=== PATIENT | male | born 1945 | race Caucasian/White ===

== ENCOUNTER 2017-04-13 13:02 | Inpatient (IN) ==
--- OUTSIDE RECORDS SUMMARY | 2017-04-13 13:43 | External Medical Summary | Clinical Summary ---
:1945 Author Organization [facility] Address [address] [place] [address] Phone Care Team Providers Name Role Phone Unavailable Primary Care Provider Unavailable Source Comments Some departments are not documenting in the electronic medical record. If you do not see the information that you expected, contact Release of Information in the Health Information Management department at [phone] for further assistance in locating additional records.[facility] Allergies Active Allergy Reactions Severity Noted Date Comments Codeine 02/07/2007 Allergy recorded in SMS: Codeine~Reactions: NAUSEA/VOMIT Hydrocodone-Acetaminophen 02/07/2007 Allergy recorded in SMS: LORTAB~Reactions: NAUSEA/VOMIT Ketorolac Tromethamine 02/07/2007 Allergy recorded in SMS: TORADOL~Reactions: NAUSEA/VOMIT Oxycodone-Acetaminophen NAUSEA ONLY Low 06/10/2016 Current Medications Prescription Sig. Disp. Refills Start Date End Date Status niacin 500 mg Take 500 mg by mouth Active tablet at bedtime daily. clopiDOGrel Take 75 mg by mouth Active (PLAVIX) 75 mg daily. tablet BABY ASPIRIN PO Take 81 mg by mouth. Active atorvastatin Take 40 mg by mouth Active (LIPITOR) 40 mg daily. tablet cyanocobalamin Take 1,000 mcg by Active (VITAMIN B-12) mouth daily. 1,000 mcg tablet polyethylene glycol Take 17 g by mouth Active 3350 (GLYCOLAX; daily. MIRALAX) 17 gram/dose powder dexamethasone Apply 1 Drop to left Active (DECADRON) 0.1 % eye as directed three ophthalmic solution times daily. artificial Apply 1 Drop to both Active tears(hypromellose) eyes as Needed. 0.4 % ophthalmic solution losartan(+) Take 100 mg by mouth Active (COZAAR) 100 mg daily. tablet dextromethorphan-qu Take 1 capsule by 60 capsule 6 03/01/2017 Active inidine 20-10 mg mouth twice daily. 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 Pt c/o proptosis and diplopia and desires removal. Plan for lateral orbitotomy with bone flap, left eye Discussed R/B/A and pt wishes to proceed. Will need to see Dr. Delgadillo for spasm after procedure. 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 06/19/2015 Encounter for long-term (current) use of medications 06/19/2015 Encounters Date Type Specialty Care Team Description 03/24/2017 Procedure visit Neurology Troy Dalton Hemifacial spasm (Primary Dx) 03/04/2017 Documentation Neurology Elías Pryor MD 03/01/2017 Office Visit Neurology Venancio Delgadillo, Muscle weakness ( Primary MD Dx);PBA (pseudobulbar Elías Pryor MD affect) 03/01/2017 Office Visit Ophthalmology Venancio Delgadillo, Cavernous hemangioma of MD orbit (Primary Dx) 02/18/2017 Telephone Ophthalmology Emily Vences Appointment 01/17/2017 Office Visit Ophthalmology Venancio Delgadillo, Hemifacial spasm (Primary Dx);Cavernous hemangioma of orbit from Last 3 Months Family History Relation Name Status Comments Social History Tobacco Use Types Packs/Day Years Used Date Former Smoker Cigarettes 1 9 Quit: 03/19/1981 Smokeless Tobacco: Never Used Alcohol Use Drinks/Week oz/Week Comments Yes 2 Standard drinks or equivalent 1.2 Sex Assigned at Date Recorded Not on file Last Filed Vital Signs Vital Sign Reading Time Taken Blood Pressure 133/81 03/01/2017 12:05 PM CDT Pulse 67 03/01/2017 12:05 PM CDT Temperature 36.8 C (98.2 F) 06/02/2016 12:45 PM [employer] Respiratory Rate - - Oxygen Saturation 98% 06/02/2016 12:45 PM [employer] Inhaled Oxygen Concentration - - Weight 110 kg (242 lb 8.1 oz) 03/01/2017 12:05 PM CDT Height 180.3 cm (5' 11") 03/01/2017 12:05 PM CDT Body Mass Index 33.82 03/01/2017 12:05 PM CDT Plan of Treatment Health Maintenance Due Date Last Done Comments HEPATITIS C SCREENING 1945 PHYSICAL (COMPREHENSIVE) EXAM 1952 PERTUSSIS VACCINE 1956 TETANUS VACCINE 1962 COLORECTAL CANCER SCREENING 1995 SHINGLES VACCINE 2005 ABDOMINAL AORTIC ANEURYSM SCREENING 2010 PREVNAR/PNEUMOVAX (#1) 2010 INFLUENZA VACCINE 12/07/2016 Implants Implanted Type Area Television Station Manager Device Expiration Model / Identifier Date Serial / Lot Plate Straight Low Profile .5mm Upperface 18 Hole Malleable Left: Eye UNIDENTIFIED [facility] [place] [id number] / Implanted: Qty: 1 on 06/02/2016 by Wellington Boudreaux MD NA / NA Screw Titanium 4mm 1.2mm Upperface Self Tap Cross Pin Bone Left: Eye UNIDENTIFIED [facility] [place] [id number] / Implanted: Qty: 7 on 06/02/2016 by Wellington Boudreaux MD NA / NA Procedures Procedure Name Priority Date/Time Associated Comments Diagnosis [place] CHEMODNRVTJ [facility] Routine 03/24/2017 2:41 Hemifacial spasm Results for this [facility] INNERVATED PM [employer] procedure are in FACIAL NRV UNIL the results section. from Last 3 Months Results CHEMODENERVATION (03/24/2017 2:41 PM) Specimen Performing Laboratory IN CLINIC Narrative Troy Dalton MD 03/24/20172:41 PM Botulinum toxin injection for treatment of hemifacial spasm: Description of Movements involuntary twitching of his left eyelid, cheek and chin Biological: Botox (botulinum toxin strain A) Dose in Units: 40 Units drawn up 40 Units discarded 0 Last Round: 12/16/16 Benefit: Very good Adverse effects nonr Wear off date not yet Additional notes he cotninued to have some twitching underneath his left eyelid Procedure: If Botox was used, it was reconstituted with preservative free normal saline to a concentration of 5 units/0.1cc Botox was injected into these muscles as selected by clinical and EMG examination. If Myobloc was used, it was diluted with preservative free normal saline to a concentration of 250 units/0.1cc and volumes are listed instead of units Side:Left Muscle Dose Orbicularis oculi, pre-tarsal 2 x 2.5 Orbicularis oculi, facial 2 x 10 Orbicularis oculi, infra-orbital 2.5 and 1.25 laterally Frontalis - Zygomaticus major/minor - Buccinator - Risorius 5 Orbicularis judah - Mentalis - Depressor anguli judah 2.5 platysma - Was EMG used? No Adverse effects at time of injection: none Target time for next injection: 13 weeks Was patient given the biological specific REMS sheet? No Lot number:[id number] Expiry date:09/2019 from Last 3 Months
--- OUTSIDE RECORDS SUMMARY | 2017-04-13 13:43 | External Medical Summary | Encounter Summary ---
:1945 Author Organization [facility] Address [address] [facility] [address] [place] [address] Phone Care Team Providers Name Role Phone Unavailable Primary Care Provider Unavailable Reason for Visit Reason Comments Procedure Encounter Details Date Type Department Care Team Description 03/24/[address] [facility] Troy Dalton Hemifacial spasm Physicians-Neurology MD Ramiro (Primary Dx) [facility] [place] [address] [place] [phone] Social History Tobacco Use Types Packs/Day Years Used Date Former Smoker Cigarettes 1 9 Quit: 03/19/1981 Smokeless Tobacco: Never Used Alcohol Use Drinks/Week oz/Week Comments Yes 2 Standard drinks or equivalent 1.2 Sex Assigned at Date Recorded Not on file as of this encounter Functional Status Functional Status Response Date of Assessment Does the patient have a hearing No 03/01/2017 impairment: Does the patient have a visual Yes 03/01/2017 impairment: Does the patient have impaired Yes - uses cane most time 03/01/2017 ambulation: Does the patient have an activity of No 03/01/2017 daily living (ADL) impairment: Does the patient have an instrumental No 03/01/2017 activity of daily living (IADL) impairment: Cognitive Status Response Date of Assessment Does the patient have a cognitive impairment: No 03/01/2017 as of this encounter Procedure Notes Troy Dalton MD - 03/24/2017 2:45 PM CSTAssociated Order(s): CHEMODENERVATIONProcedure(s): DE CHEMODNRVTJ [facility] INNERVATED FACIAL NRV UNILPre-Procedure Diagnose(s): Hemifacial spasmFormatting of this note may be different from the original. Botulinum toxin injection for treatment of hemifacial [...] free normal saline to a concentration of 5units/0.1cc Botox was injected into these muscles as selected by clinical and EMG examination. If Myobloc was used, it was diluted with preservative free normal saline to a concentration of 250 units/0.1cc and volumes are listed instead of units Side: Left Muscle Dose Orbicularis oculi, pre-tarsal 2 x [...] the biological specific REMS sheet? No Lot number:[id number] Expiry date:09/2019 in this encounter Plan of Treatment Not on fileas of this encounter Procedures Procedure Name Priority Date/Time Associated Comments Diagnosis DE CHEMODNRVTJ [facility] Routine 03/24/2017 2:41 Hemifacial spasm Results for this [facility] INNERVATED PM [employer] procedure are in FACIAL NRV UNIL the results section. in this encounter Results CHEMODENERVATION (03/24/2017 2:41 PM) Specimen Performing [...] the biological specific REMS sheet? No Lot number:[id number] Expiry date:09/2019 in this encounter Visit Diagnoses Diagnosis Hemifacial spasm - Primary Other facial nerve disorders in this encounter Administered Medications Inactive Administered Medications - up to 3 most recent administrations Medication Order MAR Action Action Date Dose Rate Site botulinum toxin A (BOTOX) Given 03/24/2017 14:41 [employer] 40 Units Face injection 40 Units 40 Units, Intramuscular, ONCE, 1 dose, Rashmi 03/24/17 at 1430, To be given by physician in this encounter
--- OUTSIDE RECORDS SUMMARY | 2017-04-13 13:43 | External Medical Summary | Continuity of Care Document ---
:1945 Author Organization [facility] Care Team Providers Name Role Phone [employer] Unavailable Unavailable Family History Value Date Source Advance Directives Order Name Results Value Date Source
--- OUTSIDE RECORDS SUMMARY | 2017-04-13 13:44 | External Medical Summary | Encounter Summary ---
:1945 Author Organization [facility] Address [address] [facility] [address] [place] [address] Phone Care Team Providers Name Role Phone Unavailable Primary Care Provider Unavailable Encounter Details Date Type Department Care Team Description 03/04/2017 Documentation [facility] Elías Pryor MD Physicians-Neurology [address] [facility] [place] [address] [place] [address] [place] [address] [phone] Social History Tobacco Use Types Packs/Day Years [...] impairment: No 03/01/2017 as of this encounter Progress Notes Dolly Ash LPN - 03/04/2017 1:47 PM Philomena yarbrough mailed to pt.in this encounter Plan of Treatment Not on fileas of this encounter Visit Diagnoses Not on filein this encounter
--- OUTSIDE RECORDS SUMMARY | 2017-04-13 13:44 | External Medical Summary | Encounter Summary ---
:1945 Author Organization [facility] Address [address] [place] [address] Phone Care Team Providers Name Role Phone Unavailable Primary Care Provider Unavailable Reason for Visit Reason Comments Eye Problem Pt presents for Prism^ Blurred Vision Pt states he doesn't see well at near w/ OTC +2.75 - Pt states he had new Rx ground into old frame with different prism correction than most current Rx. Encounter Details Date Type Department Care Team Description 03/01/2017 Office Visit [facility] Venancio Delgadillo Cavernous hemangioma Physicians - MD Titi of orbit (Primary Dx) Ophthalmology [address] [facility], [address] MD [id number] Social History Tobacco Use Types Packs/Day Years Used Date Former Smoker Cigarettes 1 9 Quit: 03/19/1981 Smokeless Tobacco: Never Used Alcohol Use Drinks/Week oz/Week Comments Yes 2 Standard drinks or equivalent 1.2 Sex Assigned at Date Recorded Not on file as of this encounter Last Filed Vital Signs Vital Sign Reading Time Taken Blood Pressure - - Pulse - - Temperature - - Respiratory Rate - - Oxygen Saturation - - Inhaled Oxygen Concentration - - Weight 106.6 kg (235 lb) 03/01/2017 9:37 AM CDT Height 180.3 cm (5' 11") 03/01/2017 9:37 AM CDT Body Mass Index 32.78 03/01/2017 9:37 AM CDT in this encounter Functional Status Functional Status Response [...] 03/01/2017 as of this encounter Progress Notes Venancio Delgadillo MD - 03/01/2017 9:30 AM CDTBody mass index is 32.78 kg/(m^ 2). Assessment and Plan: 1. Left cavernous hemangioma, s/p orbitotomy with excision of lesion June 02, 2016. 2. Diplopia secondary to no. 1: Patient doing pretty well with distance diplopia, occasionally decompensating with dry eye so we've asked him to use ATs. IF it's still decompensating, we'll give him the 1 pd base down OD which helpd today in clinic. With respect to his readers, we've given him a script for readers with 9 out split between the two lenses, 1 down OD and 1 up OS. in this encounter Plan of Treatment Not on fileas of this encounter Visit Diagnoses Diagnosis Cavernous hemangioma of orbit - Primary Hemangioma of other sites in this encounter
--- OUTSIDE RECORDS SUMMARY | 2017-04-13 13:44 | External Medical Summary | Encounter Summary ---
:1945 Author Organization [facility] Address [address] [facility] [address] [place] [address] Phone Care Team Providers Name Role Phone Unavailable Primary Care Provider Unavailable Reason for Visit Reason Comments Extremity Weakness Dysphagia Encounter Details Date Type Department Care Team Description 03/01/2017 Office Visit [facility] Venancio Delgadillo MD [address] [place] [address] [phone] Muscle weakness Physicians-Neurology Elías Pryor MD [address] [facility] [address] [place] [address] [phone] (Primary Dx);PBA [facility] ON (pseudobulbar affect) [address] [place] [address] Social History Tobacco Use Types Packs/Day Years [...] Pulse 67 03/01/2017 12:05 PM CDT Temperature - - Respiratory Rate - - Oxygen Saturation - - Inhaled Oxygen Concentration - - Weight 110 kg (242 lb 8.1 oz) 03/01/2017 12:05 PM CDT Height 180.3 cm (5' 11") 03/01/2017 12:05 PM CDT Body Mass Index 33.82 03/01/2017 12:05 PM CDT in this encounter Functional Status Functional [...] impairment: No 03/01/2017 as of this encounter Instructions Patient Instructions - Elías Pryor MD - 03/01/2017 11:40 AM CDT- Muscle weakness, spasticity, swallowing issues and 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 Relative stable since last visit in October 2016. He is being watched for motor neuron disease, specifically PLS. He was started on Nuedexta with excellent results. No progression since Feb 2016. - left hemifacial spasm, refractory. - Left orbital vascular mass s/p resection Plan: 1. Nuedexta is too expensive for his insurance. I will try compounding pharmacy for [id number] cap and quinidine 10mg cap. 2. Continue follow up Dr. Delgadillo and Dr. Dalton 3. Follow up in 6 months. Elías Pryor MD [employer] Neuromuscular Division Department of Neurologyin this encounter Progress Notes Elías Pryor MD - 03/01/2017 11:40 AM CDTFormatting of this note may be different from the original. Date of Service: 03/01/2017 Subjective: Chris Gomez is a 71 y.o. male. History of Present Illness I had the pleasure of seeing Mr. Gomez in our neuromuscular clinic for follow up on muscle weakness, swallowing issues, spasticity and hemifacial spasm and pseudobulbar affect. Since last visit in October 2016, - His hemifacial spasm is relatively better but still there. He is going to see Dr. Dalton on Mar 24 for Botox injections. We have tried tegretol and trileptal in the past with high doses that did not help. - He is following with Dr. Delgadillo for double vision secondary to cavernous hemangioma s/p resection and he is adjusting prims and reading glasses - He has not had any falls since September 2016. He is using a stick. He feels soreness in the neck. No difficulty lifting head up. He thinks he has increased slurring and decreased projection of speech. He continues to have difficulty getting out of a chair. Pseudobulbar affect is controlled with Nuedexta. Swallowing issue is still there might be worse, he chokes when he eats, he coughs frequently, he chokes on grapes. Liquids more than solid. His voice is getting quieter and slurry, he tells me that it sounds like a drunk. He gets very brief, couple of seconds, episodes of whole body getting stiff, not painful, he is getting leg cramp, happens about 4-5 times per day which is an increase in frequency. No weight loss. He uses a stick for stability since November 2015. His mother had similar symptoms of droopy eyelids, trouble swallowing, voice change, and eventually had difficulty standing. Review of Systems Constitutional: Positive for fatigue. HENT: Positive for drooling, tinnitus and trouble swallowing. Eyes: Positive for photophobia and visual disturbance. Respiratory: Positive for cough, choking and shortness of breath. Cardiovascular: Positive for leg swelling. Gastrointestinal: Negative. Endocrine: Negative. Musculoskeletal: Positive for gait problem, neck pain and neck stiffness. Skin: Negative. Allergic/Immunologic: Negative. Neurological: Positive for speech difficulty and weakness. Cramps Hematological: Negative. Psychiatric/Behavioral: Negative. Objective: artificial tears(hypromellose) 0.4 % ophthalmic solution Apply 1 Drop to both eyes as Needed. atorvastatin (LIPITOR) 40 mg tablet Take 40 mg by mouth daily. BABY ASPIRIN PO Take 81 mg by mouth. clopiDOGrel (PLAVIX) 75 mg tablet Take 75 mg by mouth daily. cyanocobalamin (VITAMIN B-12) 1,000 mcg tablet Take 1,000 mcg by mouth daily. dexamethasone (DECADRON) 0.1 % ophthalmic solution Apply 1 Drop to left eye as directed three times daily. dextromethorphan-quinidine 20-10 mg cap Take 1 capsule by mouth twice daily. Dextromethorphan 20mg and Quinidine 10mg compounded to be taken twice daily for pseudobulbar affect losartan(+) (COZAAR) 100 mg tablet Take 100 mg by mouth daily. niacin 500 mg tablet Take 500 mg by mouth at bedtime daily. polyethylene glycol 3350 (GLYCOLAX; MIRALAX) 17 gram/dose powder Take 17 g by mouth daily. Vitals: 03/01/17 1205 BP: 133/81 Pulse: 67 Weight: 110 kg (242 lb 8.1 oz) Height: 180.3 cm (71") Body mass index is 33.82 kg/(m^2). Physical Exam Mental Status: Alert, oriented to time, place and person CN II thru XII: Pupils 3mm, reactive to light and accommodation Palpebral Fissure 6mm/11mm Orb Oculi 4+/3+ Orb Leonora 4/4 Tongue 5-/5- Speech: Mild spastic dysarthria. Motor Exam: Neck flexors: 4- supine Neck extensors: 5 Right Left Right Left Shoulder abductors: 5 5 Hip flexors: 4- 4- Elbow flexors: 5- 5- Hip abductors: Elbow extensors: 5 5 Hip extensors: Wrist extensors: 5 5 Hip adductors: Wrist flexors: 5 5 Knee flexors: 4 4 Finger flexors: 5 5 Knee extensors: 5 5 Finger extensors: 5 5 Ankle plantar flexors: 5 5 Finger abductors: 5 5 Ankle dorsiflexors: 5 5 Thumb abductors: 5 5 Ankle inversion: 5 5 Ankle eversion: 5 5 Toe extensors: Toe flexors: Sensory: light touch, pinprick intact Coordination: Normal finger to nose, and heel to frias . Normal finger tapping and foot tapping Reflexes: (Right / Left): Biceps 2+/2+, brachioradialis 3/3, triceps 2+/2+, knees 3/3, ankle 2/2 with flexor plantar responses. Positive finger flexor more on the left. JJ 1+ Gait and Station: normal based unsteady gait. Could heel walk, toe walk Assessment and Plan: - Muscle weakness, spasticity, swallowing issues and 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 Relative stable since last visit in October 2016. He is being watched for motor neuron disease, specifically PLS. He was started on Nuedexta with excellent results. No progression since Feb 2016. - left hemifacial spasm, refractory. - Left orbital vascular mass s/p resection Plan: 1. Nuedexta is too expensive for his insurance. I will try compounding pharmacy for [id number] cap and quinidine 10mg cap. 2. Continue follow up Dr. Delgadillo and Dr. Dalton 3. Follow up in 6 months. Elías Pryor MD [employer] Equipment Operator Neuromuscular Division Department of Neurology Time spent with the patient was 40 minutes, 25 minutes of which were towards counseling regarding diagnosis, prognosis and management. in this encounter Plan of Treatment Not on fileas of this encounter Visit Diagnoses Diagnosis Muscle weakness - Primary Muscle weakness (generalized) PBA (pseudobulbar affect) Pseudobulbar affect in this encounter
--- OUTSIDE RECORDS SUMMARY | 2017-04-13 13:45 | External Medical Summary | Encounter Summary ---
:1945 Author Organization [facility] Address [address] [place] [address] Phone Care Team Providers Name Role Phone Unavailable Primary Care Provider Unavailable Reason for Visit Reason Comments Appointment Encounter Details Date Type Department Care Team Description 02/18/2017 Telephone [facility] Physicians - Emily Vences Appointment Ophthalmology [address] [phone] Social History Tobacco Use Types Packs/Day Years Used Date Former Smoker Cigarettes 1 9 Quit: 03/19/1981 Smokeless Tobacco: Never Used Alcohol Use Drinks/Week oz/Week Comments Yes 2 Standard drinks or equivalent 1.2 Sex Assigned at Date Recorded Not on file as of this encounter Functional Status Functional Status Response Date of Assessment Does the patient have a hearing impairment: No 07/30/2015 Does the patient have a visual impairment: Yes 07/30/2015 Does the patient have impaired ambulation: Yes 07/30/2015 Does the patient have an activity of daily living (ADL) No 07/30/2015 impairment: Does the patient have an instrumental activity of daily No 07/30/2015 living (IADL) impairment: Cognitive Status Response Date of Assessment Does the patient have a cognitive impairment: No 07/30/2015 as of this encounter Miscellaneous Notes Telephone Encounter - Emily Vences - 02/18/2017 10:27 AM CDTPlease put patient on Dr. Delgadillo's schedule for 03/01 at 930am for prism check Telephone Encounter - Emily Vences - 02/18/2017 10:27 AM CDT----- Message from Venancio Delgadillo MD sent at 02/17/2017 1:26 PM CDT ----- Regarding: FW: Visit Follow-Up Question Contact: Have patient come in with his prism glasses and we'll fit him for readers. He' ll need different prism for reading most likely. ----- Message ----- From: Vangie Sent: 02/17/2017 10:45 AM To: Venancio Delgadillo MD Subject: FW: Visit Follow-Up Question Please read message below. ----- Message ----- From: Chris Gomez Sent: 02/17/2017 9:26 AM To: [facility] Subject: Visit Follow-Up Question Since I have my new long range glasses with the prisms in them I can see quite well with them. The dotty-facial spasm is still causing problems with my vision though. I had my old prescription lenses put intro new frames thinking that they would work for reading but they don't. 2.75 readers do better but then I have double vision too with them as well as my old prescription glasses. Suggestions? Thanks, Chris. in this encounter Plan of Treatment Not on fileas of this encounter Visit Diagnoses Not on filein this encounter
--- OUTSIDE RECORDS SUMMARY | 2017-04-13 13:45 | External Medical Summary | Encounter Summary ---
:1945 Author Organization [facility] Address [address] [place] [address] Phone Care Team Providers Name Role Phone Unavailable Primary Care Provider Unavailable Reason for Visit Reason Comments Eye Problem 4 week FUV; Hx of Cavernous Hemangioma; Pt states when using the temporary prism has helped. Encounter Details Date Type Department Care Team Description 01/17/2017 Office Visit [facility] Venancio Delgadillo Hemifacial spasm Rakesh Walls MD (Primary Dx);Cavernous Ophthalmology [address] hemangioma of orbit [address] [facility], [address] [place] [id number] Social History Tobacco Use Types Packs/Day Years [...] Concentration - - Weight 106.6 kg (235 lb 0.2 oz) 01/17/2017 9:50 AM CDT Height 180.3 cm (5' 11") 01/17/2017 9:50 AM CDT Body Mass Index 32.78 01/17/2017 9:50 AM CDT in this encounter Functional Status [...] impairment: No 07/30/2015 as of this encounter Progress Notes Venancio Delgadillo MD - 01/17/2017 10:00 AM CDTBody mass index is 32.78 kg/(m^ 2). Assessment and Plan: 1. Left cavernous hemangioma, s/p orbitotomy with excision of lesion June 02, 2016. 2. Diplopia secondary to no. 1: Patient is deciding whether to proceed with strabismus surgery vs glasses. We've given him a script for glasses with the 10 pd prism ground into the lenses, 5 pd out each lens. He'll let us know if he interested in surgery. 3. Hemifacial spasm, now involving the lower face, s/p Botox injection by Dr. Dalton in this encounter Plan of Treatment Not on fileas of this encounter Visit Diagnoses Diagnosis Hemifacial spasm - Primary Other facial nerve disorders Cavernous hemangioma of orbit Hemangioma of other sites in this encounter
[2017-04-13 13:49] VITALS: BMI 33.3
[2017-04-13] MEDS ORDERED: FALL RISK - PHARMACY CONSULT XX ONE (14:34)
--- NOTE | 2017-04-13 14:43 | IRU History & Physical Report ---
[facility] Date: Chief complaint: I'm weak and have headaches HPI: Susanna Gomez is a very pleasant 71-year-old male from [facility]. Referring physician is Dr. Jose Guadalupe Rivera at [facility]. Attending physician at [place] was Dr. Jermaine Singh. His primary care physician is Dr. Bubba Wade in [place]. The patient was in his usual state of health until the evening of 04/09/2017. At that time he was coming into the house and lost his balance. He was climbing 2 or 3 steps and reach for the handrail when he lost his balance. 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 He apparently fell backwards, striking his head against the wheel of the car. He recalls climbing the steps into his home and the next thing he recalls is lying on the floor. From that point on he has some hazy memories and apparently was able to ambulate a short distance into the house with the assistance of his . He does not believe he completely lost consciousness. He did have significant confusion when he presented to the emergency department in [place]. At the [place] ED, CT of the head and neck was performed revealing bilateral subarachnoid hemorrhages. He was transferred to [facility] via helicopter and was admitted to the surgical intensive care unit. At that time his main complaint was generalized headache although he apparently has some confusion as well. He was also noted to have T1 and T2 compression fractures based on MRI of cervical spine which apparently included the top portion of the thoracic spine. He also had CT of the cervical spine. No other abnormalities were identified. There was minimal loss of anterior vertebral height and no retropulsion noted. He was placed in a c-collar which he is supposed to wear all the time. Neurosurgery (Dr. Singh) was consulted and surgical intervention was not recommended. However, Plavix and aspirin were discontinued. He was started on fosphenytoin and is now on Dilantin. The patient does report headaches every evening. He does take Tylenol at night ( just since the fall and subarachnoid hemorrhages). This tends to adequately help the pain he states. 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 Onset of these symptoms were a number of years ago apparently. He started having lower extremity weakness. He was seen by Dr. Felder initially. He was then referred to neurology and this was diagnosed in roughly October of 2015. He also has had difficulty swallowing and was choking on pills. Typically he drinks regular liquids and eats normal consistency food. However, while in [place] they placed him on nectar thickened liquids after evaluation by speech therapy. In this regard he does have history of pneumonia on several occasions although has had no pneumonia for the past 10 years. The patient also has a history of diplopia. His left eye started to bulge out and he developed significant diplopia resulting in use of prisms. Ultimately in the workup for his PLS, a CT scan or MRI was done of the brain demonstrating a golf ball sized mass behind the left eye. This was removed at [facility] in May 2016. He has had significant diplopia prior to and following that. In addition, the patient has had a problem with left hemifacial spasms. He has had Botox treatments 3 times to treat this. He does have what sounds like pseudobulbar affect and is now on Nuedextra. He has been on that for some time and he apparently has this compounded to save money. This has been of benefit with his emotional outbursts. He does have episodes of total body spasm as well , possibly relating to his underlying PLS. Level of functioning prior to the episode is as follows: He was independent for eating, grooming, upper body dressing. He was modified independent for bathing, lower body dressing, toileting, bed/chair/wheelchair transfers, toilet transfers and walking. He does use a single-point cane prior to the episode and could walk an indefinite distance. He did use a cane at home. Has 3 or 4 steps to get into his home. Current level of functioning is as follows: He is modified independent for eating, minimum assistance for grooming, lower body dressing, toileting, and toilet transfers. He is moderate assistance for bed/chair/wheelchair transfers and total assistance for walking 30 feet. The patient does have double vision since I surgery in May 2016, unrelated to the current episode. The patient does have 3 or 4 steps to get into his home. The following medical conditions are noted and require active monitoring and/or management: 1. Subarachnoid hemorrhage secondary to closed head injury: Patient is at risk for seizures, additional neurologic deficits, worsening headaches. He requires 24 hour rehabilitation nursing to monitor his neurologic status and to control pain. 2. Primary lateral sclerosis: The patient has a history of lower extremity weakness and is at risk for falls. He will require significant strengthening and a multidisciplinary approach from occupational therapy and physical therapy. 3. Dysphagia. Patient will require speech therapy evaluation and treatment to avoid risk of aspiration. Currently he is on nectar thickened liquids. The following therapies will be needed: 1. Physical therapy: for transfers and ambulation and stairs. 2. Occupational therapy: for ADL's and transfers. 3. Speech therapy: To evaluate and treat dysphagia 4. Medical management: for the above conditions. 5. 24 hour Rehabilitation Nursing to monitor and address the following: To monitor vital signs, neurologic status, pain with regard to headaches and to reduce fall risk. [facility] Clinic Medical History Balance disorder (Acute Medical) Cataract (lens) fragments in eye following cataract surgery (Acute Medical) Coronary artery disease (Acute Medical) High cholesterol (Acute Medical) Medical History Updates: 1. History of prostate cancer treated with robotic prostatectomy at . Apparently did not require hormonal therapy nor radiation. 2. Atherosclerotic heart disease status post 2 Hartey extents 2003. 3. Primary lateral sclerosis. 4. Hyperlipidemia Surgical History: *LEFT EYE SURGERY BENIGN TUMOR - 2016. *ROTATOR CUFF SURGERY - 2014-right side. *PROSTATECTOMY - 2006. *INGUNIAL HERNIA X2 [phone]. 5. Right knee benign tumor removed secondary to high school football injury. 6. Coronary artery stent placement . 7. Tonsillectomy and adenoidectomy. 8. Cataract removal. 9. Robotic prostatectomy Family History: Family History Mother Dementia HTN (hypertension) High cholesterol Father Heart attack Stroke Paternal Grandfather Stroke Hx of blood clots Sister Breast cancer - Social History Smoking status: Former smoker (patient smoked from age 18 through 26 and stopped for a time and then restarted and finally stopped at age 35. 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 He recently sold this. 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 Lives in [place] with his . Review of Systems - Constitutional Constitutional: Present: weight gain (has gained 15 pounds over the last year due to decreased exercise but maintenance of adequate intake). Absent: anorexia , chills, fatigue, fever(s), headache(s), lethargy, malaise, night sweats, weakness, weight loss [facility]: Present: diplopia (has history of diplopia predating his eye surgery but certainly no better after the surgery in May 2016). Absent: blurry vision, change in vision Mouth/Throat: Present: changes in swallowing. Absent: painful swallowing, change in taste, bleeding gums, change in voice - Cardiovascular Cardiovascular: Absent: chest pain, palpitations, syncope, dyspnea on exertion, orthopnea, edema, cyanosis, heart murmur Rhythm: Present: regular rhythm Vascular: Absent: intermittent claudication, pedal edema, unilateral swelling - Respiratory Respiratory: Absent: cough, dyspnea, hemoptysis, dyspnea on exertion, wheezing, pain on inspiration, chest congestion, excessive phlegm production - Gastrointestinal Gastrointestinal: Present: constipation. Absent: abdominal pain, change in bowel habits, diarrhea, dyspepsia, dysphagia, early satiety, hematochezia, melena, nausea, vomiting - Musculoskeletal Musculoskeletal: Present: muscle weakness (has several year history of muscle weakness in the lower extremities. Occasional muscle spasms generally.). Absent : abnormal gait, arthralgias, back pain, joint swelling, limited range of motion - Integumentary/Breasts Integumentary: Absent: alopecia, erythema, lesions, pruritus, rash, jaundice - Neurological Neurological: Present: frequent falls, weakness. Absent: abnormal gait, abnormal movements, abnormal speech, confusion, convulsions, dizziness, focal weakness, headache(s), loss of vision, memory loss, numbness, paresthesias, tremor(s) - Psychiatric Psychiatric: Absent: abnormal sleep pattern, anxiety, depression - Endocrine Endocrine: Absent: cold intolerance, flushing, heat intolerance, palpitations - Hematologic/Lymphatic Hematologic/Lymphatic: Absent: easy bleeding, easy bruising, lymphadenopathy - Allergic/Immunologic Allergic/Immunologic: Absent: urticaria Medications Home Medications Medication Instructions Recorded Confirmed Type Aspirin [Low Dose Aspirin EC] 81 mg PO DAILY #0 10/03/14 04/13/17 History Atorvastatin [Lipitor] 40 mg PO HS #0 05/28/15 12/06/17 History Clopidogrel Bisulfate [Plavix] 75 mg PO DAILY #0 10/03/14 04/13/17 History Niacin [Niacin ER] 1 tab PO HS #0 10/03/14 04/13/17 History Polyethylene Glycol 3350 1 unit PO DAILY #527 10/03/14 04/13/17 History dextromethorphan 20 mg-quinidine 2 cap PO BID cap 10/28/16 04/13/17 History 10 mg capsule Acetaminophen 650 mg PO Q4HPRN PRN 04/13/17 04/13/17 History Cyanocobalamin (B-12) [Vit. B-12] 500 mcg PO DAILY 04/13/17 04/13/17 History Losartan 50 mg PO DAILY 04/13/17 04/13/17 History Phenytoin Cap [Phenytek] 300 mg PO HS 04/13/17 04/13/17 History Allergies Allergy/AdvReac Type Severity Reaction Status Date / Time codeine AdvReac Unknown N/V Unverified 10/03/14 16:46 hydrocodone AdvReac Unknown N/V Unverified 10/03/14 16:45 Results IRU - Labs Labs: I reviewed records from [place] Exam Vital Signs: Temperature 97.9 F 04/13/17 13:48 Pulse Rate 69 04/13/17 13:48 Respiratory Rate 18 04/13/17 13:48 Blood Pressure 155/88 H 04/13/17 13:48 Pulse Oximetry 93 04/13/17 13:48 Height/Weight/BMI: Height 1.8 m Weight 108.6 kg Body Mass Index 33.3 - Constitutional Present: no acute distress, well nourished, well developed, average body habitus , cooperative - Routine HEENT Exam Head: Present: normocephalic, atraumatic. Absent: cushingoid faces, abrasion, laceration, hematoma Eye: Absent: EOMI (patient has disconjugate gaze. Left eye tends to deviate medially.), PERRL (patient's pupils are irregular likely related to his previous cataract procedure), conjunctival icterus, scleral injection, periorbital swelling, nystagmus ENT: Present: mucous membranes moist, oropharynx clear - Routine Neck Exam Present: supple, full ROM, trachea midline. Absent: lymphadenopathy, thyromegaly, tenderness, swelling - Routine Chest/Breast/Axilla Exam Chest wall: Absent: tenderness, mass Axillae: Absent: lymphadenopathy, mass - Routine Respiratory Exam Present: CTA bilaterally. Absent: accessory muscle use, decreased breath sounds , prolonged expiratory phase, rales, respiratory distress, rhonchi, stridor, wheezes, crackles, distant breath sounds - Routine Cardiovascular Exam Present: RRR, S1, S2, no murmur. Absent: gallop, S3, S4, click, irregular rhythm - Routine Abdominal Exam Present: soft, normoactive bowel sounds, non distended, non tender. Absent: rebound, guarding, firm, rigid, organomegaly, mass, hernia, wound - Routine Extremities Exam Present: no edema, non tender, pulses intact, normal capillary refill. Absent: cyanosis, clubbing - Routine Back/Spine/Pelvis Exam Back/Spine: Present: full ROM. Absent: scoliosis, kyphosis - Routine Skin Exam Present: intact, dry, warm. Absent: cyanosis, erythema, pallor, mottling, petechiae, urticaria, lesions, jaundice - Routine Neurological Exam Present: alert, oriented X3, CN II-XII intact, motor deficit (lower extremity weakness, not formally tested today), moving all extremities, normal speech. Absent: normal reflexes (patient does demonstrate hyperreflexia at the knees.) - Routine Psychiatric Exam Present: normal affect, normal thought process, cooperative, good insight, good judgment. Absent: depressed, anxious Sepsis Assessment - Evaluation Severe Sepsis: none seen IRU A/P (1) Subarachnoid hemorrhage following injury Qualifiers: Encounter type: subsequent encounter Loss of consciousness presence/ duration: without LOC Qualified Code(s): S06.6X0D - Traumatic subarachnoid hemorrhage without loss of consciousness, subsequent encounter Current visit: Yes Status: Acute Patient will be carefully monitored for neurologic decline. His headache will be monitored and he will be provided Tylenol. A multidisciplinary approach with physical therapy, occupational therapy and speech therapy will be undertaken to allow him to return to his previous level of functioning (2) Primary lateral scleroses Current visit: Yes Status: Chronic Has a history of lower extremity weakness and spasms. He will require physical therapy and occupational therapy to reduce fall risk and to regain strength to return to his home. (3) Dysphagia Qualifiers: Dysphagia type: oropharyngeal phase Qualified Code(s): R13.12 - Dysphagia, oropharyngeal phase Current visit: Yes Status: Acute He will be assessed by speech therapy and appropriate exercises will be undertaken. Resuscitation Status: Full Code - Course Hospital Course: Ross Lobo MD: - Interventions to Obtain Goals PT Treatment Plan: Balance/Proprioception, Functional Activities, Gait Training , Patient/Family Education OT Treatment Plan: ADL (Basic Care), Balance Training, Pt./Family Education Goals Progress/Modifications: Due to his recent subarachnoid hemorrhage secondary to closed head injury, the patient is at risk for further neurologic decline. In addition he has underlying primary lateral sclerosis which has resulted in significant muscle weakness. Patient states that he is even more week at the present time secondary to the subarachnoid hemorrhage which is required him to be in a hospital bed for several days. He will be seen by physical therapy, occupational therapy and speech therapy in view of his dysphagia. He will require 24 hour rehabilitation nursing to monitor his neurologic status and to control symptoms. He requires medical supervision.
--- NOTE | 2017-04-13 15:01 | IRU 24Hr Post Admit Eval ---
24 Hr Post Admission Physical - Relevant Changes Relevant Changes: No Reviewed: I have reviewed the patient's information and concur with the finding and results of the pre-admission screen. Certification: I certify the patient for rehabilitation. - Patient Condition (1) Subarachnoid hemorrhage following injury Status: Acute Qualifiers: Encounter type: subsequent encounter Loss of consciousness presence/ duration: without LOC Qualified Code(s): S06.6X0D - Traumatic subarachnoid hemorrhage without loss of consciousness, subsequent encounter Code(s): S06.6X9A - Traumatic subarachnoid hemorrhage with loss of consciousness of unspecified duration, initial encounter Classification: Present on IRF Admission, IRF Tx That Should Address Diagnosis, Diagnosis Requiring Medical Follow Up (2) Primary lateral scleroses Status: Chronic Code(s): G12.23 - Primary lateral sclerosis Classification: Present on IRF Admission, IRF Tx That Should Address Diagnosis, Diagnosis Requiring Medical Follow Up (3) Dysphagia Status: Acute Qualifiers: Dysphagia type: oropharyngeal phase Qualified Code(s): R13.12 - Dysphagia, oropharyngeal phase Code(s): R13.10 - Dysphagia, unspecified Classification: Present on IRF Admission, IRF Tx That Should Address Diagnosis, Diagnosis Requiring Medical Follow Up - Prior Functional Status Lives With: Spouse Residence Type: Apartment/Private Home Assitive Devices: Straight Cane Prior Functional Status: Indep. at home or school, Shares IADL - Current Functional Status Current Level of Function: Current level of functioning is as follows: He is modified independent for eating, minimum assistance for grooming, lower body dressing, toileting, and toilet transfers. He is moderate assistance for bed/chair/wheelchair transfers and total assistance for walking 30 feet. Failed Alternative Therapy: Arrived from Acute Care Patient Requirements: The patient requires oversight by rehabilitation physician to manage their rehabilitation treatment plan and multidisciplinary approach to care that can only be provided in an IRF and requires a multidisciplinary approach to care, provided by professional PTs, OTs, STs, dieticians, RTs, rehabilitation nurses and is not available in lesser levels of care. Limitations Req: Mobility Impairment, ADL Impairment, Limited Mobility Therapy: The patient is to receive therapy at least 5 days a week. Plan of Care Comment: Physical therapy: 75 minutes 3 days weekly, 90 minutes 2 days weekly. Occupational therapy: 75 minutes 3 days weekly, 90 minutes 2 days weekly. Speech therapy: 30 minutes 3 days weekly - Complications/Comorbidities Impact on Functional Outcomes: His primary lateral sclerosis which has resulted in lower extremity weakness will likely negatively impact his functional outcome after the subarachnoid hemorrhage. Barriers to Discharge: Weakness, Balance, Endurance - Plan to Avoid Complications Plan to Avoid Complications: The patient cannot receive this care in a lesser intensive setting such as Custodial or Outpatient Therapy due to the patient requiring the following : Patient has history of recent subarachnoid hemorrhage and is at risk for further neurologic decline, further bleeding or other complications from this including headaches. He requires a multidisciplinary approach with medical supervision. He requires 24 hour rehabilitation nursing to monitor his neurologic status and vital signs and to reduce his fall risk. He requires physical therapy and occupational therapy for lower extremity strengthening and upper body conditioning as well as speech therapy because of his dysphagia.
[2017-04-13] MEDS: ACETAMINOPHEN 325 MG TABLET PO PRN (17:25)
[2017-04-13] MEDS: QUINIDINE PO SCH (22:19)
[2017-04-13] MEDS: PHENYTOIN 300 MG CAPSULE PO SCH (22:19)
[2017-04-13] MEDS: ATORVASTATIN 40 MG TABLET PO SCH (22:19)
[2017-04-13] MEDS: DEXTROMETHORPHAN PO SCH (22:19)
[2017-04-13] MEDS: NIACIN ER 500 MG TABLET PO SCH (22:19)
[2017-04-14] MEDS: ACETAMINOPHEN 325 MG TABLET PO PRN ×3 (01:52→16:26)
[2017-04-14] MEDS: CYANOCOBALAMIN (B-12) 500mcg TABLET PO SCH (08:47)
[2017-04-14] MEDS: DEXTROMETHORPHAN PO SCH ×2 (08:48→21:49)
[2017-04-14] MEDS: QUINIDINE PO SCH ×2 (08:48→21:49)
[2017-04-14] MEDS: LOSARTAN 50 MG TABLET PO SCH (08:49)
[2017-04-14] MEDS: POLYETHYL GLYCOL 3350 17gm PACKET PO SCH (08:49)
--- NOTE | 2017-04-14 13:23 | Consult Note ---
<Jen Muniz V - Last Filed: 04/14/17 13:18> Consult Information - Data of Consult Consult date: 04/14/17 Requesting Physician: Ross Lobo MD Primary Care Provider: Nikos Wade MD Family Provider: Nikos Wade MD - Consult Narrative Reason for consult: Medical management- Subarachnoid hemorrhage,PLS History of present illness: Mr Gomez is a pleasant 71-year-old male who unfortunately fell at his home in [place] on 04/09/17. He was attempting to climb steps, and lost his balance , falling, striking his head. He was taken to the [place] emergency room where a CT scan of the brain and spine were performed. Unfortunately, he was found to have a lateral subarachnoid hemorrhages as well as a thoracic spine compression fracture. He was then flown to [facility] as a trauma for further neurologic evaluation and treatment. He was seen by neurosurgeon, Dr. Singh, however, no surgical intervention was warranted. Plavix and aspirin were discontinued and he was placed on Dilantin. 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 He is under the care of neurology at and was diagnosed with this in October 2015. He has had times where he has dysphasia and has received diet modifications in the past. Given this unfortunate acute fall with subarachnoid hemorrhage, accompanied with his 30 existing chronic comorbidities and weakness. Patient was screened and accepted to the rehabilitation dilatation unit at [facility] for ongoing therapy and strengthening. It is his goal that he will be able to discharge home independently with his . He is seen today on initial consultation. He is alert, oriented and pleasant. He reports having a mild right occipital headache that is resolved following medication this morning. He notes that since his fall. He has had daily headaches, however, they seem to be controlled on oral agents. Routine morning labs were obtained that were overall unremarkable. He is afebrile and vital signs are stable. Blood pressure this morning was slightly up at 149/92. [facility] Patient Stated Medical History Subarachnoid hemorrhage following injury- 04/09/17 T1-T2 compression Fracture Primary lateral scleroses Dysphagia Chronic diplopia Balance disorder Cataract (lens) fragments in eye following cataract surgery Coronary artery disease- Hx cardiac stents- 2003 Hypercholesterolemia History of prostate cancer treated with robotic prostatectomy at . Surgical History: *LEFT EYE SURGERY BENIGN TUMOR - 2016. *ROTATOR CUFF SURGERY - 2015-right side. *PROSTATECTOMY - 2006. *INGUNIAL HERNIA X2 [id number]. Right knee benign tumor removed secondary to high school football injury. Coronary artery stent placement . Tonsillectomy and adenoidectomy. Cataract removal. Robotic prostatectomy Family History: Mother Dementia HTN (hypertension) High cholesterol Father Heart attack Stroke Paternal Grandfather Stroke Hx of blood clots Sister Breast cancer - Social History Smoking status: Never smoker Substance use type: does not use Alcohol intake frequency: does not drink Household members: spouse Current residence: Apartment/Private Home Social history: Resides independently with at home in [place], [place]. Primary care provider, Dr. Bubba Wade Review of Systems All systems PM: 10-point ROS was reviewed, no additional remarkable complaints except - EENMT Eyes: Present: diplopia (Chronic) - Neurological Neurological: Present: headache(s) Medications Home Medications Medication Instructions Recorded Confirmed Type Aspirin [Low Dose Aspirin EC] 81 mg PO DAILY #0 10/03/14 04/13/17 History Atorvastatin [Lipitor] 40 mg PO HS #0 10/03/14 04/13/17 History Clopidogrel Bisulfate [Plavix] 75 mg PO DAILY #0 10/03/14 04/13/17 History Niacin [Niacin ER] 1 tab PO HS #0 10/03/14 04/13/17 History Polyethylene Glycol 3350 1 unit PO DAILY #527 10/03/14 04/13/17 History dextromethorphan 20 mg-quinidine 2 cap PO BID cap 10/28/16 04/13/17 History 10 mg capsule Acetaminophen 650 mg PO Q4HPRN PRN 04/13/17 04/13/17 History Cyanocobalamin (B-12) [Vit. B-12] 500 mcg PO DAILY 04/13/17 04/13/17 History Losartan 50 mg PO DAILY 04/13/17 04/13/17 History Phenytoin Cap [Phenytek] 300 mg PO HS 04/13/17 04/13/17 History Allergies Allergy/AdvReac Type Severity Reaction Status Date / Time codeine AdvReac Unknown N/V Verified 04/13/17 18:28 hydrocodone AdvReac Unknown N/V Verified 04/13/17 18:28 oxycodone AdvReac Unknown Nausea and Verified 04/13/17 18:28 Vomiting Exam Vital Signs: Temperature 97.6 F 04/14/17 08:45 Pulse Rate 78 04/14/17 08:45 Respiratory Rate 20 04/14/17 08:45 Blood Pressure 149/92 H 04/14/17 08:45 Pulse Oximetry 94 04/14/17 08:45 Height/Weight/BMI: Height 1.8 m Weight 108.6 kg Body Mass Index 33.3 - Constitutional Present: no acute distress, well nourished, well developed - Routine HEENT Exam ENT: Present: mucous membranes moist, dentition normal Comments: Left eye deviates medially intermittently - Routine Respiratory Exam Present: CTA bilaterally. Absent: wheezes - Routine Cardiovascular Exam Present: RRR, S1, S2. Absent: murmur - Routine Abdominal Exam Present: soft, normoactive bowel sounds, non distended. Absent: tenderness - Routine Extremities Exam Present: full ROM, pulses intact, normal capillary refill - Routine Back/Spine/Pelvis Exam Back/Spine: Present: full ROM - Routine Skin Exam Present: intact, dry, warm - Routine Neurological Exam Present: alert, oriented X3, CN II-XII intact, moving all extremities, vision grossly intact, hearing grossly intact, normal speech - Routine Psychiatric Exam Present: normal affect, cooperative, good insight, good judgment Results - Labs CBC & Chem 7: 04/14/17 05:33 04/14/17 05:33 Assessment and Plan (1) Subarachnoid hemorrhage following injury Current visit: Yes Status: Acute (2) Primary lateral scleroses Current visit: Yes Status: Chronic Assessment and Plan: Impression Subarachnoid hemorrhage following injury- 04/09/17 T1-T2 compression Fracture Primary lateral scleroses Dysphagia Chronic diplopia Balance disorder Cataract (lens) fragments in eye following cataract surgery Coronary artery disease- Hx cardiac stents- 2003 Hypercholesterolemia History of prostate cancer Plan Agree with admission to IRU under the care of Dr Lobo for ongoing therapy for strengthening and improved function. Speech therapy evaluation given dysphagia Continue on Phenytoin for seizure prophylaxis. Continues in c-collar 1st cervical stability Monitor blood pressure, continue on losartan Plavix and aspirin remain on hold. Last stent was in 2003 Tylenol as needed for pain control. Would recommend avoiding Ultram as this may lower seizure threshold. The hospitalist services will continue to follow patient and medically manage his existing comorbidities during his stay in the IRU. At time of discharge medical care will return to his primary care provider in [place], Dr. Jace Wade Hospital Course Summary Disclaimer: The visit summary below is not to be considered part of the above Progress Note. Hospital Course: 04/14/17 Impression Subarachnoid hemorrhage following injury- 04/09/17 T1-T2 compression Fracture Primary lateral scleroses Dysphagia Chronic diplopia Balance disorder Cataract (lens) fragments in eye following cataract surgery Coronary artery disease- Hx cardiac stents- 2003 Hypercholesterolemia History of prostate cancer Plan Agree with admission to IRU under the care of Dr Lobo for ongoing therapy for strengthening and improved function. Speech therapy evaluation given dysphagia Continue on Phenytoin for seizure prophylaxis. Continues in c-collar 1st cervical stability Monitor blood pressure, continue on losartan Plavix and aspirin remain on hold. Last stent was in 2003 Tylenol as needed for pain control. Would recommend avoiding Ultram as this may lower seizure threshold. The hospitalist services will continue to follow patient and medically manage his existing comorbidities during his stay in the IRU. At time of discharge medical care will return to his primary care provider in [place], Dr. Jace Wade <Dianna Bauman - Last Filed: 04/14/17 21:00> Consult Information - Data of Consult Requesting Physician: Ross Lobo MD Primary Care Provider: Nikos Wade MD Family Provider: Nikos Wade MD [facility] Patient Stated Medical History Other HEENT Yes: Glasses Constipation No Hx Incontinence No Clinic Medical History Subarachnoid hemorrhage following injury (Acute Medical) Primary lateral scleroses (Chronic Medical) Dysphagia (Acute Medical) Balance disorder (Acute Medical) Cataract (lens) fragments in eye following cataract surgery (Acute Medical) Coronary artery disease (Acute Medical) High cholesterol (Acute Medical) Family History: Family History Mother Dementia HTN (hypertension) High cholesterol Father Heart attack Stroke Paternal Grandfather Stroke Hx of blood clots Sister Breast cancer Exam Vital Signs: Temperature 97.9 F 04/14/17 16:00 Pulse Rate 72 04/14/17 16:00 Respiratory Rate 20 04/14/17 16:00 Blood Pressure 142/87 H 04/14/17 16:00 Pulse Oximetry 95 04/14/17 16:00 Height/Weight/BMI: Height 1.8 m Weight 108.6 kg Body Mass Index 33.3 Results - Labs CBC & Chem 7: 04/14/17 05:33 04/14/17 05:33 Assessment and Plan (1) Subarachnoid hemorrhage following injury Current visit: Yes Status: Acute (2) Primary lateral scleroses Current visit: Yes Status: Chronic Assessment and Plan: 04/14/2017-I reviewed this chart, the patient history, and the GRIEVANCE COORDINATOR's/PA's documented findings as above. We discussed and formulated the assessment and plan as above with the additions below.-Dr. Bauman The patient was seen this evening in his room. He states he's doing well. He states he worked hard with therapy today. He states he is currently weaker than his baseline prior to his injury, but he thinks he is getting better. He had a T1-T2 compression fracture and notices the pain in his anterior chest with deep breaths or cough. He states this pain has been evaluated at [place] and thought to be originating from his compression fracture. He states he is breathing well. He is eating well. His bowels are moving without difficulties. No difficulties with urination. On exam he is alert and oriented and in no acute distress. HEENT reveals disconjugate gaze chest chronic. Chest is clear to auscultation. Cardiovascular regular rate and rhythm. Abdomen is soft and nontender. Extremities are free of edema. Assessment and plan Subarachnoid hemorrhage-patient is improving T1-T2 compression fracture with referred pain in the anterior chest Primary lateral sclerosis Generalized weakness-continue PT OT Coronary artery disease-Plavix and aspirin are on hold with recent subarachnoid hemorrhage Overall, patient appears to be doing quite well. Hospital Course Summary Disclaimer: The visit summary below is not to be considered part of the above Progress Note.
[2017-04-14] MEDS: NIACIN ER 500 MG TABLET PO SCH (21:45)
[2017-04-14] MEDS: PHENYTOIN 300 MG CAPSULE PO SCH (21:45)
[2017-04-14] MEDS: ATORVASTATIN 40 MG TABLET PO SCH (21:45)
[2017-04-15] MEDS: ACETAMINOPHEN 325 MG TABLET PO PRN ×2 (05:53→16:10)
[2017-04-15] MEDS: LOSARTAN 50 MG TABLET PO SCH (08:31)
[2017-04-15] MEDS: CYANOCOBALAMIN (B-12) 500mcg TABLET PO SCH (08:31)
[2017-04-15] MEDS: POLYETHYL GLYCOL 3350 17gm PACKET PO SCH (08:31)
[2017-04-15] MEDS: QUINIDINE PO SCH ×2 (08:32→20:35)
[2017-04-15] MEDS: DEXTROMETHORPHAN PO SCH ×2 (08:32→20:35)
--- NOTE | 2017-04-15 11:46 | IRU Progress Note ---
- Subjective/Serverity of Illness Date: 04/15/17 Mr. Gomez was evaluated in his room on the inpatient rehabilitation unit. He has made progress with rehabilitation. He would like to go home. He believes he is stable for that. He does seem to function fairly well with standby assistance for most activities. He denies any chest pain. He continues to have the low neck/upper back pain related to the compression fractures. However he is getting by nicely with Tylenol. Continues to struggle with his lower extremity weakness as well as with diplopia which predated all of this. He was on Plavix and aspirin at the time of the fall. Neurosurgery recommends holding this until cleared by neurosurgery which will be in another 6 weeks. We will check with neurosurgery to see if we could at least restart the baby aspirin. He seems to be stable with regard to his neurologic status. 1. Subarachnoid hemorrhage secondary to closed head injury: He is tolerating phenytoin without difficulty. No evidence of seizures. No evidence of neurologic decline. While he continues to have headaches, these are controlled with Tylenol. 2. Primary lateral sclerosis: He has done well with therapy. He continues to demonstrate lower extremity weakness. 3. Dysphagia. Speech therapy following patient. 4. Compression fractures of T1 and T2: Continues to have quite a bit of discomfort in the upper back/lower neck area. He is wearing a cervical collar all the time. Pain is adequately managed with Tylenol at present. Exam Vital Signs: Temperature 98.0 F 04/15/17 08:00 Pulse Rate 79 04/15/17 08:00 Respiratory Rate 16 04/15/17 08:00 Blood Pressure 136/95 H 04/15/17 08:00 Pulse Oximetry 91 04/15/17 08:00 Height/Weight/BMI: Height 1.8 m Weight 108.6 kg Body Mass Index 33.3 Comments: The patient is awake, alert and oriented and in no acute distress. Pupils are equal. The neck is restricted due to the cervical collar. Medial deviation left eye again identified. Chest: Clear to auscultation bilaterally. Cor: RR with no gallop, click nor murmur Abd: soft with normo-active bowel sounds. There are no masses, no tenderness and no guarding. Extremities: No edema is noted. IRU A/P (1) Subarachnoid hemorrhage following injury Qualifiers: Encounter type: subsequent encounter Loss of consciousness presence/ duration: without LOC Qualified Code(s): S06.6X0D - Traumatic subarachnoid hemorrhage without loss of consciousness, subsequent encounter Current visit: Yes Status: Acute His neurologic status appears to be stable. We will check with Dr. Singh regarding restarting at least aspirin daily in view of his underlying coronary artery disease. (2) Primary lateral scleroses Current visit: Yes Status: Chronic This continues to be a factor with regard to his rehabilitation. (3) Dysphagia Qualifiers: Dysphagia type: oropharyngeal phase Qualified Code(s): R13.12 - Dysphagia, oropharyngeal phase Current visit: Yes Status: Acute He is followed by speech therapy. Resuscitation Status: Full Code - Course Hospital Course: Ross Lobo MD: 04/15/17 11:47 Patient states that he would like to go home. He has progressed with physical therapy and occupational therapy. He is doing well with speech therapy. Team meeting this noon for further decision. - Interventions to Obtain Goals PT Treatment Plan: Balance/Proprioception, Functional Activities, Gait Training , Patient/Family Education, Therapeutic Exercise OT Treatment Plan: ADL (Basic Care), Balance Training, Pt./Family Education, Ther. Exercise for ADL Goals Progress/Modifications: Time spent with patient and on floor reviewing data and documentin min Barriers to dismissal: vision/diplopia, cognition Medical decision-making: I have spent some time trying to determine if he should be back on his aspirin or not. His stent was some 12 or 13 years ago. I think it would be safe to stay off the Plavix but probably we should get him back on the aspirin if okay from a neurosurgical standpoint. Have discussed with hospitalist service and we will plan to contact Dr. Singh to get his input on this. Otherwise he seems to be stable. His diplopia is an impediment along with his lower extremity weakness. In addition, his cognition/memory is an impediment to progress. We will evaluate him from a multidisciplinary standpoint today at team meeting. I reminded him to have his present if at all possible.
--- NOTE | 2017-04-15 13:49 | IRU Team Meeting ---
IRU Team Meeting - Nursing Bladder Assistive Devices Utilized:: Urinal Bladder Management Level of Assist: Modified Independent Bladder Frequency of Accidents: No accidents Vital Signs: Vital Signs - 24 hr 04/14/17 16:00 04/14/17 21:09 04/15/17 08:00 Temperature 97.9 F 98.2 F 98.0 F Pulse Rate 72 70 79 Respiratory Rate 20 20 16 Blood Pressure 142/87 H 140/88 H 136/95 H Pulse Oximetry 95 96 91 Current Medications: Acetaminophen (Tylenol) 650 mg PO Q4H PRN PRN Reason: Pain Atorvastatin Calcium (Lipitor) 40 mg PO HS [facility] Last Admin: 04/14/17 21:45 Dose: 40 mg Cyanocobalamin (Vit. B-12) 500 mcg PO DAILY [facility] Last Admin: 04/15/17 08:31 Dose: 500 mcg Dextromethorphan/Quinidine (Nuedexta) 1 cap PO BID ANGIE Losartan Potassium (Cozaar) 50 mg PO DAILY [facility] Last Admin: 04/15/17 08:31 Dose: 50 mg Niacin (Niaspan) 500 mg PO HS [facility] Last Admin: 04/14/17 21:45 Dose: 500 mg Phenytoin Sodium (Phenytek) 300 mg PO HS [facility] Last Admin: 04/14/17 21:45 Dose: 300 mg Polyethylene Glycol (Miralax) 17 gm PO DAILY [facility] Last Admin: 04/15/17 08:31 Dose: 17 gm Current Medical Issues: Subarachnoid hemorrhage, thoracic spine compression fractures with pain, primary lateral sclerosis with lower extremity weakness, headaches Comments: I certify that I personally led the interdisciplinary team meeting and agree with comments, barriers and goals indicated. Team meeting was held in the patient's room with the patient and the following family members present: Patient's Mr. Gomez continues to tolerate his headaches with just Tylenol. There is question of caffeine related headaches as they seem to improve with the use of a Diet Coke. He is very cooperative and seems to be doing well. No evidence of further neurologic decline is noted. - Speech Therapy He is being followed by speech therapy. He has been instructed in exercises for safe swallowing. Recommendation is for regular food consistency and thin liquids. If he would prefer some thickening that is fine as well. Recommendations are for a swallow study later on down the road after his cervical collar has been removed. - Physical Therapy Bed, Chair, Wheelchair Transfer Assist: Stand By Assist/Supervision Ambulation Ability: Stand By Assist/Supervision Ambulation Distance: 1,020 Stair Climbing Ability: Stand By Assist/Supervision Number of Steps Climbed: 12 Car Transfer Ability: Stand By Assist/Supervision Comments: He has demonstrated good progress toward all of his goals. He has met most of his goals and is standby assistance to supervision level for ambulating 1000 feet. - Occupational Therapy Eating Ability: Independent Grooming Ability: Independent Bathing Ability: Independent Upper Body Dressing Ability: Stand By Assist/Supervision Lower Body Dressing Ability: Stand By Assist/Supervision Tub Transfer Assist: Stand By Assist/Supervision Toileting Assist: Independent Toilet Transfer Assist: Independent Comments: Patient is doing well with occupational therapy. He did demonstrate one episode of loss of balance while standing and shower to put his pants on. This is why he was standing and he was educated to do this while sitting in the future. He has progressed well toward occupational therapy goals. He does require assistance to place his cervical collar. - Goals Physical Therapy Goals: 04/15/17 Goals: 1.) Mod I with gait and transfers. 2.) Discharge Planning Occupational Therapy Goals: 04/15/16 Goals: 1.) LB dressing independently. 2.) Family to demo donning/doffing c-collar. - Barriers to Discharge Barriers to Attaining Goals: Balance - Care Plan Anticipated Length of Stay (days): 1 Anticipated DC Destination: Home, Self Care I have led this team conference and agree with the plan.
--- NOTE | 2017-04-15 14:59 | IRU Plan of Care ---
U Overall Plan of Care - Date Date: 04/15/17 - Patient Impairments (1) Subarachnoid hemorrhage following injury Qualifiers: Encounter type: subsequent encounter Loss of consciousness presence/ duration: without LOC Qualified Code(s): S06.6X0D - Traumatic subarachnoid hemorrhage without loss of consciousness, subsequent encounter Code(s): S06.6X9A - Traumatic subarachnoid hemorrhage with loss of consciousness of unspecified duration, initial encounter Status: Acute Classification: Present on IRF Admission, IRF Tx That Should Address Diagnosis, Diagnosis Requiring Medical Follow Up (2) Primary lateral scleroses Code(s): G12.23 - Primary lateral sclerosis Status: Chronic Classification: Present on IRF Admission, IRF Tx That Should Address Diagnosis, Diagnosis Requiring Medical Follow Up (3) Compression fx, thoracic spine Qualifiers: Encounter type: subsequent encounter Fracture type: closed Fracture healing: with routine healing Qualified Code(s): S22.000D - Wedge compression fracture of unspecified thoracic vertebra, subsequent encounter for fracture with routine healing Code(s): S22.000A - Wedge compression fracture of unspecified thoracic vertebra , initial encounter for closed fracture Status: Acute Classification: Present on IRF Admission, IRF Tx That Should Address Diagnosis, Diagnosis Requiring Medical Follow Up - Relevant Changes Relevant Changes: No Reviewed: I have reviewed the patient's information and concur with the finding and results of the pre-admission screen. Certification: I certify the patient for rehabilitation. - Medical Prognosis Medical Prognosis: Good Vital Signs: Last Vital Signs Temp 98.0 F 04/15/17 08:00 Pulse 79 04/15/17 08:00 Resp 16 04/15/17 08:00 BP 136/95 H 04/15/17 08:00 Pulse Ox 91 04/15/17 08:00 - Anticipated Interventions Anticipated Interventions: The patient requires inpatient IRF care for PT, OT and ST for residuals remaining from bilateral subarachnoid hemorrhages as well as primary lateral sclerosis resulting in muscular weakness and strength deficits. An individualized overall plan of care has been developed after careful review of the patient's preadmission screening, post admission physician evaluation and assessments of all therapy disciplines and/or other pertinent clinicians involved in treating the patient. This indicates medical necessity and rehabilitation necessity have been established through a thorough review of all available medical information. - Current Functional Status Failed Alternative Therapy: Arrived from Acute Care Patient Requires: The patient requires oversight by rehabilitation physician to manage their rehabilitation treatment plan and multidisciplinary approach to care that can only be provided in an IRF and requires a multidisciplinary approach to care, provided by professional PTs, OTs, STs, rehabilitation nurses, and may require STs, dieticians, and RTS. This is not available in lesser levels of care. Therapy: The patient is to receive therapy at least [address] Treatment Plan: Swallow Retraining/Exercises ST Treatment Plan Duration: One Week ST Treatment Plan Frequency: Three Times Per Week Plan of Care Comment: CONTINUE PLAN OF CARE Comments: Physical therapy: 75 minutes 3 days weekly, 90 minutes 2 days weekly Occupational therapy: 75 minutes 3 days weekly, 90 minutes 2 days weekly Speech therapy: 30 minutes 3 days weekly - Anticipated LOS/Outcomes Anticipated Functional Outcome: Expected functional improvements include: -- Modified independant to independant ambulation with or without assistive device -- Modified independant to independant ADL's with or without assistive device -- Return to pre-morbid level of mobility -- Maximize level of mobility and ADL's to decrease burden on any caregiver involved with this patient's care Anticipated Length of Stay (days): 1 Anticipated DC Destination: Home, Self Jail Safety Plan: The patient will be provided with the development of a Home Safety Plan for return to a home or home-like environment and and to ensure safety post discharge. - Plan to Avoid Complications Barriers to Attaining Goals: Endurance Plan to Avoid Complications: The patient cannot receive this care in a lesser intensive setting such as [facility] or Outpatient Therapy due to the patient requiring the following : Close monitoring of neurologic status in view of recent subarachnoid hemorrhages, reduce fall risk due to primary lateral sclerosis.
--- NOTE | 2017-04-15 15:12 | Discharge Summary ---
Discharge Information Date of admission: 04/13/17 13:34 Anticipated date of discharge: 04/16/17 Attending Physician: Ross Lobo MD Primary care physician: Nikos Wade MD Consults: 04/13/17 14:26 Physician Consult [CONS] Routine Consulting Provider: Eliezer Gonzalez Reason For Exam: medical management Ordering Provider has Notified Stogy Roller: Yes - Discharge Diagnosis (1) Subarachnoid hemorrhage following injury Status: Acute (2) Primary lateral scleroses Status: Chronic (3) Compression fx, thoracic spine Status: Acute 1. Bilateral subarachnoid hemorrhage, traumatic 2. Closed head injury 3. Primary lateral sclerosis 4. Dysphagia - Laboratory Labs: 04/14/17 05:33 04/14/17 05:33 History of Present Illness HPI: 04/15/17 15:08 Mr. Gomez has a history of multiple medical problems including primary lateral sclerosis characterized by lower extremity weakness as well as some emotional lability. In addition, he developed diplopia and some protrusion of the left globe. Further workup indicated this was due to a benign tumor behind the left eye. This was removed surgically in May 2016 but he continues to have significant diplopia with the left eye medially rotated much of the time. At this time he was in his usual state of health until 04/09/2017. He was climbing steps into his home and missed the handrail possibly because of his vision. He fell backwards striking his head on the car wheel. He denies loss of consciousness but nevertheless does not recall the entire event and did display evidence of confusion consistent with cerebral concussion. He was initially evaluated at [place] emergency department and ultimately transferred by helicopter to [facility]. He was seen by Dr. Jermaine Singh at that location. He did not recommend intervention at that time but did recommend that he stop his aspirin and Plavix. He did display evidence of weakness and reduced ability for ADLs. He was felt to be a good candidate for inpatient rehabilitation in view of the need to monitor his neurologic status, dysphagia which predated his injury and his primary lateral sclerosis. He was admitted to acute inpatient rehabilitation at [facility] on 04/13/2017. Hospital Course This is a general summary of the patient's hospital course. For more details refer to the complete medical record. Mr. Gomez was stabilized on acute care at [facility] and transferred to acute inpatient rehabilitation on 04/13/2017. A multidisciplinary approach was required in view of his recent bilateral subarachnoid hemorrhage with risk for further bleeding and neurologic complications. In addition the patient had experienced compression fracture of T1 and T2 and is in a hard cervical collar in this regard. He was seen by occupational therapy. He was independent for eating at the beginning and conclusion of therapy. He was independent for grooming as well as. Bathing ability was initially standby assistance and ultimately independent functioning. Upper body dressing was with standby assistance at the beginning and at the conclusion of therapy which was similar for lower body dressing. Toileting assistance and transfer were both with independent functioning. Bed/ chair/wheelchair transfers were also independent with beginning at the conclusion of therapy. Physical therapy saw the patient. He was modified independent for bed/chair/ wheelchair transfers for them at the beginning and at the conclusion of therapy. Toileting assistance was with modified independent functioning as was toilet transfer assistance. Car transfers were performed at standby assistance level. Ambulation was initially standby assistance and ultimately modified independent. He was initially able to ambulate 838 feet and alternately over 1000 feet. He was able to climb 12 steps with standby assistance. Neurologically he remained intact throughout. He was seen by speech therapy for dysphagia which predated this as well. He was judged to be safe for swallowing regular food consistency and thin liquids but speech therapy recommends a follow -up modified barium swallow when he is out of his cervical collar. He was given exercises to do to strengthen his mouth, tongue and swallowing muscles. He will follow-up with Dr. Wade in [place] as well as with Dr. Singh in [address] Singh recommends that he wear the hard cervical collar continuously through this time in view of the thoracic spine fractures. In addition, I called Dr. Singh who approved the use of a baby aspirin once daily until he is seen by Dr. Singh. However he will need to discontinue Plavix at the present time and not start until approved by Dr. Singh. Hospital course: 04/14/17 Impression Subarachnoid hemorrhage following injury- 04/09/17 T1-T2 compression Fracture Primary lateral scleroses Dysphagia Chronic diplopia Balance disorder Cataract (lens) fragments in eye following cataract surgery Coronary artery disease- Hx cardiac stents- 2003 Hypercholesterolemia History of prostate cancer Plan Agree with admission to IRU under the care of Dr Lobo for ongoing therapy for strengthening and improved function. Speech therapy evaluation given dysphagia Continue on Phenytoin for seizure prophylaxis. Continues in c-collar 1st cervical stability Monitor blood pressure, continue on losartan Plavix and aspirin remain on hold. Last stent was in 2003 Tylenol as needed for pain control. Would recommend avoiding Ultram as this may lower seizure threshold. The hospitalist services will continue to follow patient and medically manage his existing comorbidities during his stay in the IRU. At time of discharge medical care will return to his primary care provider in [place], Dr. Jace Wade Time spent with patient: 25 - 35 minutes Discharge Plan - Med Rec/Dispo Referrals/Follow Up: Jermaine Singh [Physician] - (Dr. Jermaine Singh's office will call patient to let him know of the date and time of follow-up appt. . [facility] [address] [place] [address]) Nikos Wade MD [Family Provider] - (Dr. Diony Wade on 04/19/17 at 10:40 am for Hosp. follow-up. . [facility] [address] [place] [address]) Prescriptions: Continue Niacin [Niacin ER] 1 tab PO HS #0 Acetaminophen 650 mg PO Q4HPRN PRN PRN Reason: Pain Cyanocobalamin (B-12) [Vit. B-12] 500 mcg PO DAILY Aspirin [Low Dose Aspirin EC] 81 mg PO DAILY #0 Atorvastatin [Lipitor] 40 mg PO HS #0 Polyethylene Glycol 3350 1 unit PO DAILY #527 Losartan 50 mg PO DAILY Phenytoin Cap [Phenytek] 300 mg PO HS #30 cap dextromethorphan 20 mg-quinidine 10 mg capsule 2 cap PO BID cap Discontinued Clopidogrel Bisulfate [Plavix] 75 mg PO DAILY #0 - Disposition 01 Discharged Home, Self-Care
--- NOTE | 2017-04-15 15:19 | Letter to Referring Physician ---
Dear Dr. Wade, This is a brief note to bring you up-to-date on the status of Deven Gomez and his stay on the acute inpatient rehabilitation unit at [facility]. As you are likely aware, this patient was admitted to the acute care hospital at [facility] on 04/09/17 for traumatic brain injury resulting in bilateral subarachnoid hemorrhages. The patient was stabilized while on the acute level and did not require surgical intervention and was admitted to inpatient rehabilitation unit at [facility] on April. While on inpatient rehabilitation, this patient was seen by occupational therapy and physical therapy and improved overall in their functional ability. We also monitored and managed the patient's primary lateral sclerosis, diplopia and dysphagia as well as his compression fractures of T1 and T2 while on Acute Rehab. Please see a copy of the history and physical examination as well as discharge summary enclosed with this letter for further details. He was instructed to wear his hard cervical collar 24 hours daily until seen by Dr. Singh in about 6 weeks. He did not require any narcotic pain medicines and is getting by with Tylenol for his headaches. Finally, Dr. Singh recommends no Plavix until released by him. However he may take aspirin 81 mg daily in view of his coronary artery disease (confirmed with Dr. Singh by telephone on 04/15/17). Thank you for allowing us to be involved in this nice patient's care. Please contact me directly should you have any questions regarding their stay on the inpatient rehabilitation unit. Sincerely, Ross Lobo M.D.
[2017-04-15] MEDS: NIACIN ER 500 MG TABLET PO SCH (20:35)
[2017-04-15] MEDS: ATORVASTATIN 40 MG TABLET PO SCH (20:35)
[2017-04-15] MEDS: PHENYTOIN 300 MG CAPSULE PO SCH (20:36)
[2017-04-16] MEDS: ACETAMINOPHEN 325 MG TABLET PO PRN (01:50)
[2017-04-16] MEDS: QUINIDINE PO SCH (08:45)
[2017-04-16] MEDS: LOSARTAN 50 MG TABLET PO SCH (08:45)
[2017-04-16] MEDS: DEXTROMETHORPHAN PO SCH (08:45)
[2017-04-16] MEDS: CYANOCOBALAMIN (B-12) 500mcg TABLET PO SCH (08:45)
[2017-04-16] MEDS: POLYETHYL GLYCOL 3350 17gm PACKET PO SCH (08:46)
[2017-04-16 09:26] VITALS: BP 143/92; PULSE 69; RESP 14; TEMP 97.5; O2SAT 95
== END 2017-04-16 11:10 | disposition home or self-care (01) | DRG 945 ==
PROVIDERS: ADMIT Internal Medicine; ATTEND Internal Medicine